=== PATIENT | male | born 1975 | race Caucasian/White ===

== ENCOUNTER 2018-07-31 22:33 | Emergency (ER) | payer SELFPAY ==
[~2018-07-31] VITALS: Ht 188 cm; Wt 86.3 kg
[2018-07-31] MEDS ORDERED: IBUPROFEN 200 MG TABLET PO ONE (23:00)
[2018-07-31] MEDS ORDERED: SULFAMETH./TRIMETHOPRIM DS 800MG/160MG TABLET PO ONE (23:00)
[2018-07-31] MEDS ORDERED: OXYcodone/APAP 5/325MG TABLET PO ONE (23:00)
[2018-07-31] MEDS ORDERED: CEPHALEXIN 500 MG CAPSULE PO ONE (23:00)
[2018-07-31] MEDS ORDERED: LIDOCAINE-MPF 1%, 5ML INFIL ONE (23:00)
[2018-07-31] MEDS ORDERED: IBUPROFEN 600 MG TABLET ONE (23:02)
[2018-07-31] MEDS ORDERED: CEPHALEXIN 500 MG CAPSULE ONE (23:02)
[2018-07-31] MEDS ORDERED: SULFAMETH./TRIMETHOPRIM DS 800MG/160MG TABLET ONE (23:03)
[2018-07-31] MEDS ORDERED: OXYcodone/APAP 5/325MG TABLET ONE (23:03)
[2018-07-31] MEDS ORDERED: LIDOCAINE-MPF 1%, 5ML ONE (23:05)
[2018-07-31 23:26] VITALS: BP 149/95
== END 2018-08-01 01:10 | disposition home or self-care (01) ==
LOC: ED 23:24
DX: L02.512 Cutaneous abscess of left hand (principal); F17.200 Nicotine dependence, unspecified, uncomplicated
CPT/HCPCS: 10060; 99284

== ENCOUNTER 2019-09-08 15:57 | Emergency (ER) | payer OTHER ==
[~2019-09-08] VITALS: Ht 188 cm; Wt 82.8 kg
--- NOTE | 2019-09-08 16:49 | NUR ---
Pt to rm 17 from [facility]
--- NOTE | 2019-09-08 16:58 | NUR ---
FRIST CONTACT WITH PT. PT C/O HARD TO BREATHE FOR 3 DAYS. PRODUCTIVE COUGH. NASAL CONGESTION. SORE THROAT. NOT EATING OR DRINKING X3 DAYS. AND LT FACIAL PAIN SINCE HITTING HEAD ABOUT 10 DAYS AGO. PT'S AOX4. RESPS EVEN AND UNLABORED. BP/SPO2 MONITORS IN PLACE. CALL LIGHT WITHIN REACH. EDMD AT BEDSIDE TO EVALUATE AT THIS TIME.
[2019-09-08] MEDS ORDERED: ACETAMINOPHEN 500 MG TABLET ONE (17:07)
--- NOTE | 2019-09-08 17:10 | NUR ---
PT MEDICATED PER EMAR. PT TOLERATED WELL.
--- NOTE | 2019-09-08 17:15 | NUR ---
PT TO CT AT THIS TIME.
[2019-09-08] MEDS ORDERED: ACETAMINOPHEN 500 MG TABLET PO ONE (17:30)
--- NOTE | 2019-09-08 17:47 | NUR ---
PT BACK TO ROOM FROM CT NOW.
[2019-09-08 18:08] VITALS: BP 119/71
--- NOTE | 2019-09-08 18:41 | NUR ---
Patient given discharge instructions and they have confirmed that they understand the instructions. Patient ambulatory with steady gait.
== END 2019-09-08 18:42 | disposition home or self-care (01) ==
LOC: ED 17:07
DX: J32.9 Chronic sinusitis, unspecified (principal); Z90.49 Acquired absence of other specified parts of digestive tract
CPT/HCPCS: 70450; 70486; 93005; 99284

== ENCOUNTER 2020-02-27 21:34 | Emergency (ER) | payer MEDICAID ==
[~2020-02-27] VITALS: Ht 188 cm; Wt 83.8 kg
--- NOTE | 2020-02-27 21:37 | NUR ---
PT REFUSING TO BY TRIAGED AT THIS TIME. WAITING FOR S/O OUT IN PARKING LOT WHO IS ALSO BEEN SEEN. STATES "LET WHOEVER IS NEXT GO FIRST."
[2020-02-27 22:28] VITALS: BP 147/85
[2020-02-27] MEDS ORDERED: CEFTRIAXONE 250 MG IM ONE (22:30)
[2020-02-27] MEDS ORDERED: AZITHROMYCIN 500 MG TABLET PO ONE (22:30)
--- NOTE | 2020-02-27 22:32 | NUR ---
on first pt contact, pt is aggitated that he "is from his girlfriend and doesnt even want to be here". Pt denies any burning, itching or other symptoms of STD. Sitting back on gurney appears comfortable. Afua FISCHER at for eval and POC. Placed on SPO2/BP monitors. WCTM.
[2020-02-27] MEDS ORDERED: AZITHROMYCIN 250 MG TABLET ONE (22:35)
[2020-02-27] MEDS ORDERED: CEFTRIAXONE 250 MG ONE (22:35)
--- NOTE | 2020-02-27 23:31 | NUR ---
Patient given discharge instructions and they have confirmed that they understand the instructions. Patient ambulatory with steady gait. DENIES ADDITIONAL NEEDS OR QUESTIONS, DC'D WITH NO BELONGINGS LEFT IN ROOM, NAD, PT REFUSED VITALS SAYING "I JUST WANT TO GET THE FUCK OUTTA HERE"
== END 2020-02-27 23:33 | disposition home or self-care (01) ==
LOC: ED 23:00
DX: A54.9 Gonococcal infection, unspecified (principal); Z90.89 Acquired absence of other organs; F17.210 Nicotine dependence, cigarettes, uncomplicated
CPT/HCPCS: 87491; 87591; 96372; 99283; J0696

== ENCOUNTER 2020-10-14 07:11 | Emergency (ER) | payer MEDICAID ==
[~2020-10-14] VITALS: Ht 188 cm; Wt 87.1 kg
[2020-10-14] MEDS ORDERED: LIDOCAINE-MPF 1%, 5ML INFIL ONE (08:00)
[2020-10-14] MEDS ORDERED: LIDOCAINE-MPF 1%, 5ML ONE (08:11)
[2020-10-14] MEDS ORDERED: BICILLIN-LA 2,400,000 UNITS/4 ML IM ONE (09:00)
--- NOTE | 2020-10-14 09:00 | NUR ---
PT BECAME AGITATED WITH ERP DURING I&D & REFUSED FURTHER WOUND CARE. PT AMENABLE TO RECEIVING IM ABX & WRITTEN RX.
[2020-10-14 09:25] VITALS: BP 120/67
--- NOTE | 2020-10-14 09:29 | NUR ---
Patient given wound care/discharge instructions and Rx, they have confirmed that they understand the instructions. Patient ambulatory with steady gait.
== END 2020-10-14 09:35 | disposition home or self-care (01) ==
LOC: ED 08:52
DX: L02.414 Cutaneous abscess of left upper limb (principal); A53.9 Syphilis, unspecified; Z90.89 Acquired absence of other organs
CPT/HCPCS: 10060; 36415; 86592; 96372; 99283; J0561